=== PATIENT | male | born 1950 | race Caucasian/White ===

== ENCOUNTER 2017-01-24 13:18 | Emergency (ER) | payer MEDICARE ==
[~2017-01-24] VITALS: Ht 182.9 cm; Wt 100.0 kg
[~2017-01-24 13:18] MED LIST: CRESTOR20 MG OR; LEXAPRO5 MG OR; PREVACID30 M1 OR; TOPROL XL100 MG OR; TRICOR145 MG OR
[2017-01-24 14:28] LABS: HEMATOCRIT 48.1 % (39.0-50.0); HEMOGLOBIN 16.1 g/dl (14.0-18.0); IMMATURE GRANULOCYTES 0.3 % (0.0-1.0); MEAN CELL VOLUME 83.1 fL CALC (80.0-100.0); MEAN CORPUSCULAR HGB 27.8 pG CALC (26.0-32.0); MEAN CORPUSCULAR HGB CONC 33.5 g/L CALC (32.0-36.0); NEUT# 4.48 thou/uL (1.82-7.42); RED BLOOD COUNT 5.79 mill/uL (4.70-6.10); RED CELL DISTRI WIDTH 14.3 % (11.5-15.5)
[2017-01-24 14:43] LABS: ALBUMIN 4.3 g/dL (3.2-5.0); ALKALINE PHOSPHATASE 77 u/l (38-126); ANION GAP 16 (6-22 (CALC)); BILIRUBIN, TOTAL 0.8 mg/dL (0.0-1.4); BUN 22 mg/dL (8-23); BUN/CREATININE RATIO 15 (12-20 (CALC)); CALCIUM 9.7 mg/dL (8.4-10.2); CARBON DIOXIDE 26 mmol/l (22-30); CHLORIDE 99 mmol/l (95-108); CREATININE 1.4 mg/dL (0.7-1.3); GFR 51 ML/MIN (>=60 (CALC)); GFR FOR AFR.AMER. > 60 ML/MIN (>=60 (CALC)); GLUCOSE 290 mg/dL (82-115); POTASSIUM 4.5 mmol/l (3.5-5.1); SGOT/AST 28 u/l (19-48); SGPT/ALT 44 u/l (11-66); SODIUM 137 mmol/l (137-146); TOTAL PROTEIN 7.5 g/dL (6.3-8.2)
[2017-01-24 14:55] LABS: MYOGLOBIN 60 ng/mL (0 - 121)
[2017-01-24 15:07] LABS: URINE BILIRUBIN - DIPSTICK NEGATIVE (NEGATIVE); URINE BLOOD DIPSTICK NEGATIVE (NEGATIVE); URINE CLARITY CLEAR; URINE COLOR YELLOW; URINE GLUCOSE - DIPSTICK >=1000 mg/dL (NEGATIVE); URINE KETONE NEGATIVE (NEGATIVE); URINE LEUK ESTERASE NEGATIVE (NEGATIVE); URINE NITRITE - DIPSTICK NEGATIVE (Negative); URINE PH 5.5 (4.5-8.0); URINE PROTEIN - DIPSTICK NEGATIVE (NEG-TRACE); URINE SPECIFIC GRAVITY 1.025
[2017-01-24 15:29] VITALS: BP 134/69
== END 2017-01-24 15:41 | disposition home or self-care (01) ==
LOC: ED 13:18
PROVIDERS: Emergency Medicine
DX: J32.9 Chronic sinusitis, unspecified (principal); H53.8 Other visual disturbances; I10 Essential (primary) hypertension

== ENCOUNTER 2017-08-27 06:58 | Day surgery (SDC) | payer OTHER, MEDICARE ==
[~2017-08-27] VITALS: Ht 180.3 cm; Wt 119.3 kg
[~2017-08-27 06:58] MED LIST changes: +LEVEMIR100 UNIT/M SC; +LOSARTAN POTASS50 MG PO; +NOVOLOG100 UNIT/M SC; +OMEGA 31000 MG PO; +PRILOSEC20 MG PO; +TAMSULOSIN HCL0.4 MG PO; +TRAMADOL HCL50 MG PO; +VENLAFAXINE H37.5 MG PO; +VITAMIN B 12100 MCG PO
[2017-08-27] MEDS ORDERED: PERCOCET 10/31 COMBO PO (12:20)
[2017-08-27 13:02] VITALS: BP 105/60
== END 2017-08-27 13:00 | disposition home or self-care (01) | DRG 502 ==
LOC: ORM 06:58
PROVIDERS: ATTEND Orthopaedic Surgery
PROC: 0LQ24ZZ Repair Left Shoulder Tendon, Percutaneous Endoscopic Approach (ICD-10-PCS; principal; 2017-08-27)
PROC: 0LS44ZZ Reposition Left Upper Arm Tendon, Percutaneous Endoscopic Approach (ICD-10-PCS; 2017-08-27)
PROC: 0RHK44Z Insertion of Internal Fixation Device into Left Shoulder Joint, Percutaneous Endoscopic Approach (ICD-10-PCS; 2017-08-27)
PROC: 0RNK4ZZ Release Left Shoulder Joint, Percutaneous Endoscopic Approach (ICD-10-PCS; 2017-08-27)
DX: M75.112 Incomplete rotator cuff tear or rupture of left shoulder, not specified as traumatic (principal); M75.52 Bursitis of left shoulder; S43.432A Superior glenoid labrum lesion of left shoulder, initial encounter; S46.212A Strain of muscle, fascia and tendon of other parts of biceps, left arm, initial encounter; S43.492A Other sprain of left shoulder joint, initial encounter; X58.XXXA Exposure to other specified factors, initial encounter
CPT/HCPCS: J1100; J2710

== ENCOUNTER 2020-07-22 11:09 | Observation (INO) | payer OTHER, MEDICARE ==
[~2020-07-22] VITALS: Ht 180.3 cm; Wt 122.0 kg
[~2020-07-22 11:09] MED LIST changes: +PERCOCET 10/31 COMBO PO; -PRILOSEC20 MG PO; +PRILOSEC20 MG/CAP PO
[2020-07-22 11:46] LABS: HEMATOCRIT 52.7 % (39.0-50.0); HEMOGLOBIN 16.7 g/dl (14.0-18.0); IMMATURE GRANULOCYTES 0.1 % (0.0-5.0); MEAN CELL VOLUME 84.9 fL CALC (80.0-100.0); MEAN CORPUSCULAR HGB 26.9 pG CALC (26.0-32.0); MEAN CORPUSCULAR HGB CONC 31.7 g/dL CAL (32.0-36.0); NEUT# 4.45 thou/uL (1.82-7.42); RED BLOOD COUNT 6.21 mill/uL (4.70-6.10); RED CELL DISTRI WIDTH 14.7 % (11.5-15.5)
[2020-07-22 12:00] LABS: ALBUMIN 4.5 g/dL (3.2-5.0); ALKALINE PHOSPHATASE 79 u/l (38-126); ANION GAP 14 (6-22 (CALC)); BILIRUBIN, TOTAL 0.8 mg/dL (0.0-1.4); BUN 18 mg/dL (8-23); BUN/CREATININE RATIO 12 (12-20 (CALC)); CARBON DIOXIDE 27 mmol/l (22-30); CHLORIDE 101 mmol/l (95-108); CREATININE 1.5 mg/dL (0.7-1.3); GFR 46 ML/MIN (>=60 (CALC)); GFR FOR AFR.AMER. 56 ML/MIN (>=60 (CALC)); POTASSIUM 4.3 mmol/l (3.5-5.1); SGOT/AST 26 u/l (19-48); SODIUM 138 mmol/l (137-146); TOTAL PROTEIN 7.8 g/dL (6.3-8.2)
[2020-07-22 12:13] LABS: MYOGLOBIN 81 ng/mL (0 - 121)
[2020-07-22] MEDS ORDERED: GABAPENTIN100 MG PO (12:22)
[2020-07-22] MEDS ORDERED: TRAMADOL HCL50 MG PO (12:24)
[2020-07-22] MEDS ORDERED: CARVEDILOL6.25 MG PO (12:24)
[2020-07-22] MEDS ORDERED: FOLIC ACID1 MG PO (12:25)
[2020-07-22] MEDS ORDERED: MAG OXIDE400 MG PO (12:25)
[2020-07-22 16:42] VITALS: BP 150/79
[2020-07-22 19:00] VITALS: BP 149/75
[2020-07-22 20:54] LABS: URINE BILIRUBIN - DIPSTICK NEGATIVE (NEGATIVE); URINE BLOOD DIPSTICK NEGATIVE (NEGATIVE); URINE COLOR YELLOW; URINE GLUCOSE - DIPSTICK >=1000 mg/dL (NEGATIVE); URINE KETONE NEGATIVE (NEGATIVE); URINE LEUK ESTERASE NEGATIVE (NEGATIVE); URINE NITRITE - DIPSTICK NEGATIVE (Negative); URINE PROTEIN - DIPSTICK NEGATIVE (NEG-TRACE); URINE SPECIFIC GRAVITY 1.025
[2020-07-22 21:31] VITALS: BP 153/74
[2020-07-22 23:00] VITALS: BP 146/79
[2020-07-23 01:20] VITALS: BP 165/80
[2020-07-23 04:30] VITALS: BP 146/81
[2020-07-23 06:13] LABS: HEMATOCRIT 49.4 % (39.0-50.0); HEMOGLOBIN 15.4 g/dl (14.0-18.0); MEAN CELL VOLUME 85.5 fL CALC (80.0-100.0); MEAN CORPUSCULAR HGB 26.6 pG CALC (26.0-32.0); MEAN CORPUSCULAR HGB CONC 31.2 g/dL CAL (32.0-36.0); NEUT# 3.65 thou/uL (1.82-7.42); RED BLOOD COUNT 5.78 mill/uL (4.70-6.10); RED CELL DISTRI WIDTH 14.8 % (11.5-15.5)
[2020-07-23 06:37] LABS: ALBUMIN 3.7 g/dL (3.2-5.0); ALKALINE PHOSPHATASE 64 u/l (38-126); ANION GAP 10 (6-22 (CALC)); BILIRUBIN, TOTAL 0.9 mg/dL (0.0-1.4); BUN 15 mg/dL (8-23); BUN/CREATININE RATIO 11 (12-20 (CALC)); CARBON DIOXIDE 27 mmol/l (22-30); CHLORIDE 104 mmol/l (95-108); CHOLESTEROL HDL RATIO 3.3 (<4.4 (CALC)); CREATININE 1.4 mg/dL (0.7-1.3); GFR 50 ML/MIN (>=60 (CALC)); GFR FOR AFR.AMER. > 60 ML/MIN (>=60 (CALC)); HDL CHOLESTEROL 33 mg/dL (>=40); POTASSIUM 3.9 mmol/l (3.5-5.1); SGOT/AST 22 u/l (19-48); SODIUM 137 mmol/l (137-146); TOTAL PROTEIN 6.6 g/dL (6.3-8.2); TOTAL TRIGLYCERIDES 177 mg/dl (30-149); VLDL CHOLESTROL 35 mg/dl (4-45 (CALC))
[2020-07-23 06:40] LABS: CALCULATED LDLCHOLESTEROL 41 mg/dL (62-129 (CALC)); TOTAL CHOLESTEROL 109 mg/dl (0-199)
[2020-07-23 07:15] VITALS: BP 133/71
[2020-07-23 11:11] VITALS: BP 132/75
== END 2020-07-23 14:52 | disposition home or self-care (01) | DRG 313 ==
LOC: ED 11:09 → ED-I 12:42 → ED 12:52 → MS2 12:53
PROVIDERS: Emergency Medicine; Nurse Practitioner; ADMIT Internal Medicine; ATTEND Internal Medicine
DX: R07.9 Chest pain, unspecified (principal); I35.0 Nonrheumatic aortic (valve) stenosis; I10 Essential (primary) hypertension; E11.9 Type 2 diabetes mellitus without complications; E78.5 Hyperlipidemia, unspecified; N40.0 Benign prostatic hyperplasia without lower urinary tract symptoms; K21.9 Gastro-esophageal reflux disease without esophagitis; F32.9 Major depressive disorder, single episode, unspecified; F41.9 Anxiety disorder, unspecified; Z79.4 Long term (current) use of insulin; Z20.822 Contact with and (suspected) exposure to COVID-19
CPT/HCPCS: J1650

== ENCOUNTER 2021-01-07 11:17 | Emergency (ER) | payer OTHER, MEDICARE ==
[~2021-01-07 11:17] MED LIST changes: +CARVEDILOL6.25 MG PO; +FOLIC ACID1 MG PO; +GABAPENTIN100 MG PO; +MAG OXIDE400 MG PO; -OMEGA 31000 MG PO; +VENLAFAXINE H37.5 M1 PO; -VENLAFAXINE H37.5 MG PO
[2021-01-07] MEDS ORDERED: NEURONTIN300 MG PO (11:44)
[2021-01-07] MEDS ORDERED: CLOBETASOL PRO TOP (11:48)
[2021-01-07] MEDS ORDERED: TALTZ80 MG/M1 SC (11:49)
[2021-01-07] MEDS ORDERED: CRESTOR40 MG PO (11:50)
[2021-01-07] MEDS ORDERED: COREG12.5 MG PO (11:51)
[2021-01-07] MEDS ORDERED: VITAMIN D325 MCG PO (11:53)
[2021-01-07] MEDS ORDERED: CLARITIN10 M2 PO (11:54)
[2021-01-07] MEDS ORDERED: JARDIANCE25 MG PO (11:56)
[2021-01-07] MEDS ORDERED: B-121000 MC4 PO (11:57)
[2021-01-07] MEDS ORDERED: KERALYT TOP (11:58)
[2021-01-07] MEDS ORDERED: OMEGA 31000 MG PO (11:59)
[2021-01-07] MEDS ORDERED: FLURANDRENOLIDE EX (12:04)
[2021-01-07 12:26] LABS: HEMATOCRIT 49.2 % (39.0-50.0); HEMOGLOBIN 15.6 g/dl (14.0-18.0); IMMATURE GRANULOCYTES 0.1 % (0.0-5.0); MEAN CORPUSCULAR HGB 27.3 pG CALC (26.0-32.0); MEAN CORPUSCULAR HGB CONC 31.7 g/dL CAL (32.0-36.0); NEUT# 4.47 thou/uL (1.82-7.42); RED BLOOD COUNT 5.72 mill/uL (4.70-6.10); RED CELL DISTRI WIDTH 13.8 % (11.5-15.5)
[2021-01-07 12:47] LABS: ACT PARTIAL THROMBO TIME 22.5 SECONDS (20.0-32.5); PROTHROMBIN TIME 10.2 SECONDS (9.0-12.5)
[2021-01-07 12:48] LABS: ALBUMIN 4.2 g/dL (3.2-5.0); ALKALINE PHOSPHATASE 71 u/l (38-126); ANION GAP 15 (6-22 (CALC)); BILIRUBIN, TOTAL 0.6 mg/dL (0.0-1.4); BUN 21 mg/dL (8-23); BUN/CREATININE RATIO 15 (12-20 (CALC)); CARBON DIOXIDE 24 mmol/l (22-30); CHLORIDE 102 mmol/l (95-108); CREATININE 1.4 mg/dL (0.7-1.3); GFR 50 ML/MIN (>=60 (CALC)); GFR FOR AFR.AMER. > 60 ML/MIN (>=60 (CALC)); LIPASE 113 u/l (23-300); POTASSIUM 4.3 mmol/l (3.5-5.1); SGOT/AST 26 u/l (19-48); SODIUM 136 mmol/l (137-146); TOTAL PROTEIN 7.6 g/dL (6.3-8.2)
[2021-01-07 14:55] VITALS: BP 127/67
== END 2021-01-07 14:55 | disposition left against medical advice (07) | DRG 313 ==
LOC: ED 11:17
DX: R07.9 Chest pain, unspecified (principal); R79.9 Abnormal finding of blood chemistry, unspecified; E11.9 Type 2 diabetes mellitus without complications; I10 Essential (primary) hypertension; Z91.19 Patient's noncompliance with other medical treatment and regimen; Z95.2 Presence of prosthetic heart valve; Z20.822 Contact with and (suspected) exposure to COVID-19

== ENCOUNTER 2022-04-01 13:31 | Emergency (ER) | payer OTHER, MEDICARE ==
[2022-04-01] VITALS (8 sets, daily range): BP systolic 114–169; BP diastolic 70–99
[~2022-04-01] VITALS: Ht 180.3 cm; Wt 114.5 kg
[~2022-04-01 13:31] MED LIST changes: +B-121000 MC4 PO; +CLARITIN10 M2 PO; +CLOBETASOL PRO TOP; +COREG12.5 MG PO; +CRESTOR40 MG PO; +FLURANDRENOLIDE EX; +JARDIANCE25 MG PO; +KERALYT TOP; +NEURONTIN300 MG PO; +OMEGA 31000 MG PO; +TALTZ80 MG/M1 SC; +VITAMIN D325 MCG PO
[2022-04-01 14:18] LABS: HEMATOCRIT 50.4 % (39.0-50.0); HEMOGLOBIN 16.6 g/dl (14.0-18.0); IMMATURE GRANULOCYTES 0.1 % (0.0-5.0); MEAN CELL VOLUME 84.4 fL CALC (80.0-100.0); MEAN CORPUSCULAR HGB 27.8 pG CALC (26.0-32.0); MEAN CORPUSCULAR HGB CONC 32.9 g/dL CAL (32.0-36.0); NEUT# 4.15 thou/uL (1.82-7.42); RED BLOOD COUNT 5.97 mill/uL (4.70-6.10); RED CELL DISTRI WIDTH 14.2 % (11.5-15.5)
[2022-04-01 14:26] LABS: ALBUMIN 4.2 g/dL (3.2-5.0); CREATININE 1.4 mg/dL (0.7-1.3); POTASSIUM 4.3 mmol/l (3.5-5.1); TOTAL PROTEIN 7.8 g/dL (6.3-8.2)
[2022-04-01 14:28] LABS: D-DIMER 0.97 mg/L (0.19-0.60)
[2022-04-01 14:34] LABS: BILIRUBIN, TOTAL 0.9 mg/dL (0.0-1.4)
[2022-04-01 14:38] LABS: ACT PARTIAL THROMBO TIME 23.7 SECONDS (20.0-32.5); INTERNATIONAL NORMALIZED RATIO 1.1 RATIO (0.7-1.3); PROTHROMBIN TIME 10.5 SECONDS (9.0-12.5)
== END 2022-04-01 16:21 | disposition left against medical advice (07) | DRG 313 ==
LOC: ED 13:31
PROVIDERS: Family Medicine
DX: R07.9 Chest pain, unspecified (principal); Z53.29 Procedure and treatment not carried out because of patient's decision for other reasons
CPT/HCPCS: Q9967

== ENCOUNTER 2024-02-11 11:40 | Emergency (ER) | payer OTHER, MEDICARE ==
[2024-02-11] VITALS (16 sets, daily range): BP systolic 106–138; BP diastolic 72–86
[~2024-02-11] VITALS: Ht 180.3 cm; Wt 108.8 kg
[2024-02-11] MEDS ORDERED: IPRATROPIUM-Albuterol 0.5MG-2.5MG/3 ML NEB ONE ×2 (11:55)
[2024-02-11] MEDS ORDERED: methylPREDNISolone SODIUM SUCC 125 MG/2 ML SDV IV ONE (11:55)
[2024-02-11 12:13] LABS: BASO% 0.2 % (0-3); EOS% 1.3 % (0-8); HEMATOCRIT 53.3 % (39.0-50.0); HEMOGLOBIN 17.4 g/dl (14.0-18.0); IMMATURE GRANULOCYTES 0.6 % (0.0-5.0); LYMPH% 24.2 % (15-41); MEAN CELL VOLUME 84.2 fL CALC (80.0-100.0); MEAN CORPUSCULAR HGB 27.5 pG CALC (26.0-32.0); MEAN CORPUSCULAR HGB CONC 32.6 g/dL CAL (32.0-36.0); NEUT# 5.67 thou/uL (1.82-7.42); NEUT% 65.7 % (42-76); RED BLOOD COUNT 6.33 mill/uL (4.70-6.10); RED CELL DISTRI WIDTH 14.4 % (11.5-15.5)
[2024-02-11 12:34] LABS: ALBUMIN 3.9 g/dL (3.2-5.0); CREATININE 1.6 mg/dL (0.7-1.3); POTASSIUM 4.2 mmol/l (3.5-5.1); TOTAL PROTEIN 6.8 g/dL (6.3-8.2)
== END 2024-02-11 15:34 | disposition home or self-care (01) | DRG 312 ==
LOC: ED 11:40
PROVIDERS: Family Medicine
DX: R55 Syncope and collapse (principal); N28.9 Disorder of kidney and ureter, unspecified; M89.9 Disorder of bone, unspecified; I10 Essential (primary) hypertension; E11.9 Type 2 diabetes mellitus without complications; E78.5 Hyperlipidemia, unspecified; Z95.2 Presence of prosthetic heart valve; Z79.84 Long term (current) use of oral hypoglycemic drugs
CPT/HCPCS: Q9967